=== PATIENT | female | born 1985 | race Caucasian/White ===

== ENCOUNTER 2018-09-15 11:41 | Outpatient (CLI) | payer MEDICAID, SELFPAY ==
[2018-09-15 12:03] LABS: Glucose,Fasting 82 mg/dL (60-105)
[2018-09-15 13:25] VITALS: BMI 36.5
[2018-09-15 13:25] LABS: Glucose 1 Hour 105 mg/dL (74-106)
[2018-09-15 13:30] VITALS: BP 112/70; PULSE 99; RESP 20; O2SAT 95
== END 2018-09-15 13:50 | disposition home or self-care (01) ==
LOC: LAB 11:41 → INF 14:24
PROVIDERS: Visit Provider Obstetrics & Gynecology
DX: Z34.90 Encounter for supervision of normal pregnancy, unspecified, unspecified trimester (principal)
CPT/HCPCS: 36415; 82951; 96372; J2790